=== PATIENT | female | born 1995 | race Caucasian/White ===

== ENCOUNTER 2023-03-22 14:33 | Emergency (ER) | payer BC ==
[2023-03-22 14:51] VITALS: BMI 24.3
[2023-03-22] MEDS ORDERED: ACETAMINOPHEN 1000 MG/100 ML BAG IVPB ONE (15:09)
[2023-03-22] MEDS ORDERED: ONDANSETRON 4 MG/2 ML VIAL IVPB ONE (15:09)
[2023-03-22] MEDS ORDERED: SODIUM CHLORIDE 0.9% 500 ML INFUS.BAG IV ONE (15:09)
[2023-03-22] MEDS ORDERED: ONDANSETRON 4 MG/2 ML VIAL ONE (16:28)
[2023-03-22] MEDS ORDERED: ACETAMINOPHEN INJECTION 100 ML IVPB ONE (16:28)
[2023-03-22 16:30] LABS: BASO % 0.2 % (0-2.0); EOS % 0.3 % (0-4.5); HEMATOCRIT 39.6 % (32.4-45.2); HEMOGLOBIN 14.3 GM/dL (10.7-15.3); LYMPH % 9.8 % (8-40); MCH 31.3 pg (25.7-33.7); MCHC 36.2 g/dl (32.0-36.0); MEAN CELL VOLUME 86.6 fl (80-96); MEAN PLT VOLUME 9.7 fl (7.5-11.1); MONO % 7.2 % (3.8-10.2); NEUT % 82.5 % (42.8-82.8); PLATELET COUNT 204 10^3/uL (134-434); RBC 4.57 M/mm3 (3.60-5.2); RDW 12.1 % (11.6-15.6); WHITE BLOOD COUNT 8.3 K/mm3 (4.0-10.0)
[2023-03-22 16:36] LABS: EPI CELLS >36 /uL (0-25.1); HYALINE CASTS 2 /uL (0-3.1); PH,URINE 6.5 (5.0-8.0); URINE APPEARANCE CLOUDY; URINE BACTERIA 3234 /uL (0-1359); URINE BILIRUBIN NEGATIVE (NEGATIVE); URINE COLOR YELLOW; URINE GLUCOSE (UA) NEGATIVE (NEGATIVE); URINE KETONE 1+ (NEGATIVE); URINE LEUK ESTERASE 1+ (NEGATIVE); URINE NITRITE NEGATIVE (NEGATIVE); URINE PROTEIN TRACE (NEGATIVE); URINE RBC 53 /uL (0-23.9); URINE WBC 157 /uL (0-25.8)
[2023-03-22 16:50] LABS: HCG,QUALITATIVE URINE Negative
[2023-03-22 16:52] LABS: CALCIUM 9.2 mg/dL (8.5-10.1)
[2023-03-22 16:53] LABS: ALBUMIN 3.9 g/dl (3.4-5.0); BLOOD UREA NITROGEN 10.8 mg/dL (7-18)
[2023-03-22 16:56] LABS: CREATININE 0.8 mg/dL (0.55-1.3)
[2023-03-22 16:57] LABS: TOT PROT 7.5 g/dl (6.4-8.2)
[2023-03-22 16:58] LABS: BILIRUBIN,TOTAL 0.7 mg/dL (0.2-1)
[2023-03-22 17:06] VITALS: BP 111/70; PULSE 84; RESP 24; TEMP 97.6
== END 2023-03-22 19:43 | disposition home or self-care (01) ==
LOC: JER 14:33
PROC: 3E033NZ Introduction of Analgesics, Hypnotics, Sedatives into Peripheral Vein, Percutaneous Approach (ICD-10-PCS; principal; 2023-03-22)
PROC: 3E033GC Introduction of Other Therapeutic Substance into Peripheral Vein, Percutaneous Approach (ICD-10-PCS; 2023-03-22)
DX: N39.0 Urinary tract infection, site not specified (principal); K51.90 Ulcerative colitis, unspecified, without complications; R11.2 Nausea with vomiting, unspecified; R19.7 Diarrhea, unspecified
CPT/HCPCS: 36415; 74177-TC; 80053; 81003; 83690; 84703; 85025; 86140; 87070; 87086; 87205; 87491; 87591; 99285-25; Q9967